=== PATIENT | male | born 1995 | race African-American/Black ===

== ENCOUNTER 2025-03-22 04:17 | Emergency (ER) | payer OTHER ==
[2025-03-22 04:26] VITALS: BP 138/94; PULSE 57; RESP 18; TEMP 98.4; BMI 23.1
[2025-03-22] MEDS ORDERED: AMOXICILLIN 250 MG CAPSULE ONE (04:44)
[2025-03-22] MEDS: AMOXICILLIN 500 MG CAPSULE (FP) PO ONE (04:48)
== END 2025-03-22 05:06 | disposition home or self-care (01) ==
LOC: JER 04:17
DX: K08.89 Other specified disorders of teeth and supporting structures (principal)
CPT/HCPCS: 99283-25